=== PATIENT | female | born 1985 | race Caucasian/White ===

== ENCOUNTER 2019-07-28 12:59 | Emergency (ER) | payer MEDICAID, SELFPAY ==
--- NOTE | 2019-07-28 13:02 | ED.GENADULT ---
HPI - General Adult General Chief complaint: Extremity Problem,Nontraumatic Stated complaint: Leg pain/Swollen Time Seen by Provider: 07/28/19 13:22 Source: patient and RN notes reviewed Mode of arrival: ambulatory Limitations: no limitations History of Present Illness HPI narrative: 33-year-old female who is a current smoker presents with concern for left lower leg edema. Reports history of varicose veins in the left lower leg for which she has not received treatment. She reports she recently started a new job where she stands on her feet. Reports after work she noticed left lower leg swelling and aching. She reports after elevating her leg swelling resolved. She denies any posterior lower leg tenderness, redness, warmth, edema. MD complaint: Edema Related Data Allergies Allergy/AdvReac Type Severity Reaction Status Date / Time No Known Allergies Allergy Verified 07/28/19 13:33 Review of Systems Review of Systems: Narrative: CONSTITUTIONAL: Denies malaise, chills, sweats, or fever. CARDIOVASCULAR: Denies chest pain, palpitations. Reports history of left lower leg edema. Reports varicose veins RESPIRATORY: Denies cough or dyspnea. GASTROINTESTINAL: Denies abdominal pain, nausea, vomiting, diarrhea SKIN: Denies rash or itching. MUSCULOSKELETAL: Reports left lower leg edema and aching NEUROLOGIC: Denies numbness, weakness, or headache. All systems reviewed & are unremarkable except as noted in HPI and below PMFSH Comments At time of signature, agree with nursing past medical, surgical, social and family history. There is no relevant family history pertinent to the presenting complaint Exam Narrative: Exam Narrative: GENERAL: Well-appearing, well-nourished, and in no acute distress. HEAD: Normocephalic, atraumatic. EYES: PERRLA, conjunctivae clear, and EOMI. No nystagmus. ENT: Nares clear. Mucous membranes moist. NECK: Supple. No lymphadenopathy. CHEST: No respiratory distress. Clear to auscultation. No bony deformities, no asymmetry. Speaks in full sentences. HEART: Regular rate and rhythm. No murmur heard. Normal, equal bilateral peripheral pulses. EXTREMITIES: Normal range of motion. No edema. Normal strength and sensation. 4 large varicose veins noted to the lower left leg. No posterior leg edema, tenderness, redness, no claudication SKIN: Warm, dry, no rash. NEURO: Alert and oriented x3. PSYCH: Normal mood and affect Course Course Emergency Course: Discussed with patient low suspicion of blood clot, no current edema, tenderness, redness, warmth, claudication. Discussed with patient possibility of transferring to emergency room for further evaluation of blood clot, patient agrees at this time that she will only seek care in the emergency room if symptoms change or worsen. Patient is aware of diagnosis, understands and agrees to treatment plan. Anticipatory guidance given. Patient agrees to follow-up as directed and is aware of reasons to seek care at the emergency department. Portions of this record may have been created with voice recognition software Vital Signs Vital signs: Reviewed. Medical Decision Making MDM Narrative Medical decision making narrative: Exam findings show no acute concerns or changes; patient is non-toxic appearing and is in no distress. Patient is appropriate for outpatient treatment and follow-up. Differential Diagnosis Differential Diagnosis: DVT, dependent edema, varicose veins Critical Care Time Critical Care Time Critical Care Time: No Discharge Plan Discharge Clinical Impression: Left leg swelling Patient Disposition: Home, Self-Care Condition: Stable Instructions: Leg Edema (ED) Additional Instructions: 1) Please follow-up with a primary care doctor for further evaluation. 2) If you have any worsening of symptoms, such as redness, warmth, tenderness at the back of your left lower leg, or any other urgent concerns please go to the ER. 3) Please use compression stock
[2019-07-28 13:05] VITALS: BP 126/73; PULSE 67; RESP 18; TEMP 36.7; O2SAT 100
== END 2019-07-28 13:35 | disposition home or self-care (01) ==
PROVIDERS: Emergency Provider Nurse Practitioner
DX: M79.89 Other specified soft tissue disorders (principal); I83.92 Asymptomatic varicose veins of left lower extremity
CPT/HCPCS: 99203; G0463

== ENCOUNTER 2020-02-21 14:14 | Emergency (ER) | payer OTHER, SELFPAY ==
[2020-02-21 14:30] VITALS: BP 143/71; PULSE 88; RESP 18; TEMP 37.1; O2SAT 100
--- NOTE | 2020-02-21 14:32 | ED.ANIMALBIT ---
HPI - Animal Bite General Chief Complaint: Animal Bite Stated Complaint: Dog bite Time Seen by Provider: 02/21/20 14:34 Source: patient and RN notes reviewed Mode of arrival: ambulatory Limitations: no limitations History of Present Illness HPI narrative: 34-year-old female presents concern for dog bite. Reports approximately 10 days ago she was bit by a dog on her right upper arm. She reports she cleaned the wound and has been using peroxide and Neosporin. She is concerned because yesterday in the shower she felt a hard knot near the bite site. She denies any pain, redness, drainage from the area. complaint: animal bite Related Data Home Medications Medication Instructions Recorded Confirmed No Home Medications 02/21/20 02/21/20 Allergies Allergy/AdvReac Type Severity Reaction Status Date / Time No Known Allergies Allergy Verified 02/21/20 14:36 Review of Systems Review of Systems: Narrative: CONSTITUTIONAL: Denies malaise, chills, sweats, or fever. CARDIOVASCULAR: Denies chest pain, palpitations, or edema. RESPIRATORY: Denies cough or dyspnea. SKIN: Reports dog bite to the right upper arm. Reports a nonpainful lump distal to the dog bite MUSCULOSKELETAL: Denies musculoskeletal myalgia NEUROLOGIC: Denies numbness, weakness All systems reviewed & are unremarkable except as noted in HPI and below PMFSH Social History Social History Gender identity (if verbalized by the patient): Female Comments At time of signature, agree with nursing past medical, surgical, social and family history. There is no relevant family history pertinent to the presenting complaint Exam Narrative: Exam Narrative: GENERAL: Well-appearing, well-nourished, and in no acute distress. HEAD: Normocephalic EYES: PERRLA, conjunctivae clear ENT: Mucous membranes moist. NECK: Supple. CHEST: No respiratory distress. Speaks in full sentences. HEART: Regular rate and rhythm. Normal peripheral pulses. EXTREMITIES: Right arm has gross normal range of motion, no edema, normal strength and sensation. SKIN: Warm, dry, no rash. Scab noted to the right upper/inner arm surrounded by healing ecchymosis without erythema, induration, edema, tenderness. Palpable nontender nodule noted approximately 5 cm distal to the wound with no surrounding erythema, edema, induration NEURO: Alert and oriented x3. PSYCH: Normal mood and affect Course Course Emergency Course: Patient is aware of diagnosis, understands and agrees to treatment plan. Anticipatory guidance given. Patient agrees to follow-up as directed and is aware of reasons to seek care at the emergency department. Portions of this record may have been created with voice recognition software Vital Signs Vital signs: Vital Signs Temperature 98.7 F 02/21/20 14:30 Pulse Rate 88 02/21/20 14:30 Respiratory Rate 18 02/21/20 14:30 Blood Pressure 143/71 H 02/21/20 14:30 Pulse Oximetry 100 02/21/20 14:30 Temperature 98.7 F 02/21/20 14:30 Pulse Rate 88 02/21/20 14:30 Respiratory Rate 18 02/21/20 14:30 Blood Pressure 143/71 H 02/21/20 14:30 Pulse Oximetry 100 02/21/20 14:30 Reviewed MDM - Animal Bite MDM Narrative Medical decision making narrative: Exam findings show no acute concerns or changes; patient is non-toxic appearing and is in no distress. Patient is appropriate for outpatient treatment and follow-up. Differential Diagnosis Differential diagnosis: Likely bite by animal and dog bite Critical Care Time Critical Care Time Critical Care Time: No Discharge Plan Discharge Clinical Impression: Dog bite Qualifiers: Encounter type: initial encounter Qualified Code(s): W54.0XXA - Bitten by dog, initial encounter Patient Disposition: Home, Self-Care Condition: Stable Instructions: Animal Bite (ED) Additional Instructions: 1) Please follow-up with your primary care doctor if you have any new or concerning symptoms. 2) If you have any urgent co
== END 2020-02-21 14:50 | disposition home or self-care (01) ==
PROVIDERS: Emergency Provider Nurse Practitioner
DX: S41.151A Open bite of right upper arm, initial encounter (principal); W54.0XXA Bitten by dog, initial encounter
CPT/HCPCS: 99212; G0463

== ENCOUNTER 2020-05-02 18:48 | Emergency (ER) | payer OTHER, SELFPAY ==
[2020-05-02 19:00] VITALS: BP 110/78; PULSE 68; RESP 18; TEMP 36.1; O2SAT 98
--- NOTE | 2020-05-02 19:01 | ED.URI ---
HPI - URI/Sore Throat General Chief Complaint: Upper Respiratory Infection Stated Complaint: Sore Throat Time Seen by Provider: 05/02/20 19:01 Source: patient and RN notes reviewed History of Present Illness HPI Narrative: Patient is a 34-year-old female who presents the urgent care with complaints of sore throat migrating to the left ear for the last 2 days. Patient denies any fever, chills, nausea, vomiting, cough, headache. Denies of any known exposure to Covid or strep. Patient is not taking anything [id number] for her symptoms. No other acute complaints. No acute distress noted. Patient aware of the plan of care. Some parts of this dictation were generated by voice recognition software and may contain typographical and/or grammatical inaccuracies. Related Data Allergies Allergy/AdvReac Type Severity Reaction Status Date / Time No Known Allergies Allergy Verified 05/02/20 19:09 Review of Systems Review of Systems: Narrative: CONSTITUTIONAL: Denies fever, chills, or sweats. EYES: Denies visual changes, redness, or discharge. ENT: Reports of sore throat migrating to the left ear CARDIOVASCULAR: Denies chest pain, palpitations, or edema. RESPIRATORY: Denies cough or dyspnea. GASTROINTESTINAL: Denies abdominal pain, nausea, vomiting, or diarrhea. GENITOURINARY: Denies dysuria or hematuria. SKIN: Denies rash or itching. MUSCULOSKELETAL: Denies back pain, joint pain, or myalgia. NEUROLOGIC: Denies headache, numbness, or weakness. All other systems reviewed are negative, except as documented in HPI. PMFSH Social History Social History Gender identity (if verbalized by the patient): Female Comments At the time of my signature, I reviewed and agree with the nursing past medical, surgical, social, and family history. There is no relevant family history pertinent to the patient complaint. Exam Narrative: Exam Narrative: GENERAL: This is a well-nourished, well-developed patient, in no apparent distress. HEAD: normocephalic, atraumatic. EYES: PERRL. Sclera clear/white. Vision is grossly intact. EARS: External ears normal, auditory canals clear and without drainage, TMs normal without perforation. Hearing grossly intact. NOSE: External nose normal with no obvious nasal discharge, nares without redness, no rhinorrhea. THROAT: Mucous membranes moist, posterior pharynx clear. Moderate postnasal drainage with mild bilateral tonsillar edema without exudate NECK: Neck supple, mild left submandibular tender lymphadenopathy CARDIOVASCULAR: Regular rate and rhythm without murmurs, gallops, or rubs. RESPIRATORY: Clear to auscultation. Breath sounds equal bilaterally. No wheezes, rales, or rhonchi. SKIN: warm, intact with no suspicious lesions or rash, good texture and turgor. NEURO: awake, alert, and oriented to person, place and time. There were no obvious focal neurologic abnormalities. EXTREMITIES: No clubbing, cyanosis, or edema. Course Vital Signs Vital signs: Vital Signs Temperature 97 F L 05/02/20 19:00 Pulse Rate 68 05/02/20 19:00 Respiratory Rate 18 05/02/20 19:00 Blood Pressure 110/78 05/02/20 19:00 Pulse Oximetry 98 05/02/20 19:00 Temperature 97 F L 05/02/20 19:00 Pulse Rate 68 05/02/20 19:00 Respiratory Rate 18 05/02/20 19:00 Blood Pressure 110/78 05/02/20 19:00 Pulse Oximetry 98 05/02/20 19:00 Reviewed MDM - URI/Sore Throat MDM Narrative Medical decision making narrative: Reviewed lab results with the patient. She is aware that strep swab was positive. Advised the patient to complete oral antibiotic regimen as prescribed. Be sure to eat and drink with medication. You will be contagious for up to 24 hours after antibiotic therapy. Use Tylenol/ibuprofen as needed for fever or pain. May use a warm compress to the neck for gland swelling. Increase water intake. Make sure to change her toothbrush out within 2 to 3 days. Use a humidifier at night. Follow-up with your PCP wi
== END 2020-05-02 19:20 | disposition home or self-care (01) ==
PROVIDERS: Emergency Provider Nurse Practitioner Family
DX: J02.0 Streptococcal pharyngitis (principal)
CPT/HCPCS: 87880; 99213; G0463